=== PATIENT | female | born 1975 | race Caucasian/White ===

== ENCOUNTER 2021-04-08 20:31 | Inpatient (IN) | payer OTHER ==
[~2021-04-08] VITALS: Ht 165.1 cm; Wt 78.9 kg
[~2021-04-08 20:31] MED LIST: NAPROSYN500 MG PO; NORFLEX100 MG PO; TESSALON PERLE100 MG PO
[2021-04-08 20:35] VITALS: BP 112/73
[2021-04-08] MEDS ORDERED: NOHOMEMEDICATIONS (20:40)
[2021-04-08 21:24] LABS: ABSOLUTE NEUTROPHILS 7.4 thou/uL (1.4-8.2); BASOPHILS 0.7 % (0.0-2.0); EOSINOPHILS 1.6 % (0.0-3.0); HEMATOCRIT 38.3 % (37.0-47.0); LYMPHOCYTES 34.3 % (24.0-44.0); MCH 28.6 pg (26.0-34.0); MCHC 33.9 g/dL (28.0-37.0); MCV 84.5 fL (80.0-100.0); MONOCYTES 4.9 % (1.0-8.0); POLYS 58.5 % (36.0-66.0); RBC 4.54 mil/uL (4.20-5.00); RDW 14.7 % (10.5-14.5); WBC 13.4 thou/uL (4.0-11.0)
[2021-04-08 21:31] LABS: ANION GAP 12 mmol/L (7-16); BUN 8 mg/dL (7-18); CALCIUM 8.6 mg/dL (8.5-10.1); CHLORIDE 104 mmol/L (98-107); CO2 22 mmol/L (21-32); CREATININE 0.7 mg/dL (0.6-1.0); GLUCOSE 109 mg/dL (74-106); SODIUM 138 mmol/L (136-145)
[2021-04-08 21:32] LABS: POTASSIUM 4.3 mmol/L (3.5-5.1)
[2021-04-08 21:41] LABS: ALBUMIN 3.2 g/dL (3.4-5.0); LIPASE 75 U/L (73-393); SGOT 17 U/L (15-37); SGPT 15 U/L (30-65); TOTAL BILIRUBIN 0.4 mg/dL (0.2-1.0); TOTAL PROTEIN 6.4 g/dL (6.4-8.2)
[2021-04-08 22:29] LABS: PLATELET COUNT 358 thou/uL (150-400); PLATELET ESTIMATE NORMAL
[2021-04-09] MEDS ORDERED: LIPITOR 20 MG T20 M1 PO (00:30)
[2021-04-09 03:06] LABS: HEMATOCRIT 38.2 % (37.0-47.0); HEMOGLOBIN 12.7 gm/dL (12.0-15.0); MCH 28.5 pg (26.0-34.0); MCHC 33.3 g/dL (28.0-37.0); MCV 85.4 fL (80.0-100.0); RBC 4.48 mil/uL (4.20-5.00); RDW 14.6 % (10.5-14.5); WBC 10.3 thou/uL (4.0-11.0)
[2021-04-09 03:33] LABS: CALCIUM 8.6 mg/dL (8.5-10.1); CREATININE 0.8 mg/dL (0.6-1.0)
[2021-04-09 07:07] VITALS: BP 150/73
[2021-04-09 07:28] VITALS: BP 112/67
--- NOTE | 2021-04-09 07:34 | EKG ---
[address] [place] [address] ELECTROCARDIOGRAM REPORT Name: ANGELA SNYDER Room #: 434-P ADM IN M.R.#: [id number] Admission: 04/08/21 Attend Phys: Satnam Coffman MD Discharge: Date of : 79 Report #: [id number] [facility] ED Test Date: 2021-04-08 Test Time: 20:36:37 Pat Name: ANGELA SNYDER Department: Room: 434 Gender: F [employer]: ISAI : 1975 Requested By: Gareth Horowitz Order Number: [id number] MD: Ben Cooper Measurements Intervals [place] Rate: 84 P: 55 UT: 151 QRS: 53 QRSD: 97 T: 29 QT: 364 QTc: 431 Interpretive Statements Sinus rhythm Probable left atrial enlargement Minimal ST depression, lateral leads No previous ECG available for comparison Electronically Signed On 04-09-2021 7:34:29 CDT by Ben Cooper [email or web address] <ELECTRONICALLY SIGNED> By: Ben Cooper MD, [facility] 04/09/21 0734 35 2036 Ben Cooper MD, FACC /EPI
[2021-04-09 07:50] VITALS: BP 106/68
[2021-04-09 09:39] LABS: CHOLESTEROL 182 mg/dL (<200); HDL CHOLESTEROL 37 mg/dL (>40); LDL CHOLESTEROL 127 mg/dL (<100); TC:HDL 4.9 Ratio (Not establshd); TRIGLYCERIDE 91 mg/dL (<150); VLDL 18 mg/dL (<40)
--- NOTE | 2021-04-09 09:58 | 2DMMODE ---
[facility] [place] [address] 2 D/M-MODE ECHOCARDIOGRAM Name: ANGELA SNYDER Room #: 434-P ADM IN M.R.#: [id number] Admission: 04/08/21 Attend Phys: Goldy Sena MD Discharge: Date of : 79 Report #: [id number] THIS REPORT FOR: cc: GERARD - Lesley family physician/PCP GERARD - No family physician/PCP Ben Cooper MD [facility] ~ APPROVED REPORT Study performed: 04/09/2021 09:15:23 EXAM: Comprehensive 2D, Doppler, and color-flow Echocardiogram Patient Location: Bedside Room #: 434 Status: routine BSA: 1.85 HR: 73 bpm BP: 106/68 mmHg Rhythm: NSR Other Information Study Quality: Adequate Indications Chest Pain 2D Dimensions IVC: 15.00 mm Volumes Left Atrial Volume (Systole) Single Plane 4CH: 33.60 mL Single Plane 2CH: 35.16 mL LA ESV Index: 21.00 mL/m2 Aortic Valve AoV Peak Shan.: 1.59 m/s AO Peak Gr.: 10.07 mmHg LVOT Max P.44 mmHg LVOT Max V: 1.36 m/s Mitral Valve E/A Ratio: 1.1 MV Decel. Time: 235.53 ms MV E Max Shan.: 0.89 m/s MV A Shan.: 0.80 m/s MV PHT: 68.30 ms [facility] [address] [place] [address] 2 D/M-MODE ECHOCARDIOGRAM Name: ANGELA SNYDER CLARK Room #: 434-P ADM IN M.R.#: [id number] Admission: 04/08/21 Attend Phys: Goldy Sena MD Discharge: Date of : 79 Report #: [id number] IVRT: 96.89 ms Pulmonary Valve PV Peak Shan.: 1.07 m/s PV Peak Gr.: 4.57 mmHg Pulmonary Vein P Vein S: 0.48 m/s P Vein A: 0.27 m/s P Vein D: 0.37 m/s P Vein A Dur.: 106.1 msec P Vein S/D Ratio: 1.30 Tricuspid Valve TR Peak Shan.: 2.43 m/s TR Peak Gr.: 23.61 mmHg PA Pressure: 29.00 mmHg Left Ventricle The left ventricle is normal size. There is normal LV segmental wall motion. There is normal left ventricular wall thickness. Left ventricular systolic function is normal. The left ventricular ejection fraction is within the normal range. LVEF is 55-60%. Left ventricular filling pattern is normal for age. Right Ventricle The right ventricle is normal size. The right ventricular systolic function is normal. Atria The left atrium size is normal. The right atrium size is normal. Aortic Valve The aortic valve is normal in structure. No aortic regurgitation is present. There is no aortic valvular stenosis. Mitral Valve The mitral valve is normal in structure. There is no mitral valve regurgitation noted. No evidence of mitral valve stenosis. Tricuspid Valve The tricuspid valve is normal in structure. There is trace tricuspid regurgitation. Estimated PAP 29 mmHg. There is no pulmonary hypertension. Pulmonic Valve The pulmonary valve is normal in structure. There is no pulmonic valvular regurgitation. [facility] [address] [place] [address] 2 D/M-MODE ECHOCARDIOGRAM Name: ANGELA SNYDER CLARK Room #: 434-[facility].#: [id number] Admission: 04/08/21 Attend Phys: Goldy Sena MD Discharge: Date of : 79 Report #: [id number] Great Vessels The aortic root is normal in size. IVC is normal in size and collapses >50% with inspiration. Pericardium There is no pericardial effusion. <Conclusion> Normal left ventricular size/wall thickness Ejection fraction 60% Normal right ventricular size/function Normal atrial size Normal aortic/mitral valve structure and function Trace tricuspid valve insufficiency Pulmonary systolic pressure estimated 29 mmHg Normal aortic root size No pericardial effusion <ELECTRONICALLY SIGNED> By: Ben Cooper MD, [facility] 04/09/21 0957 [id number] Ben Cooper MD, FACC /INF
[2021-04-09] MEDS ORDERED: CEFDINIR300 MG PO (11:27)
[2021-04-09 11:32] VITALS: BP 106/68
--- NOTE | 2021-04-09 11:39 | NUR ---
ADMISSION: PT ARRIVED TO UNIT UPSET AND CRYING. STATES SHE DOES NOT HAVE INSURANCE AND CANNOT AFFORD TO BE IN THE HOSPITAL. PT STATES SHE FEELS SINCE HER HEART IS OK, SHE SHOULD BE ABLE TO GO HOME WITH ORAL ANTIBIOTICS. 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
[2021-04-09 13:27] VITALS: BP 106/68
== END 2021-04-09 13:15 | disposition home or self-care (01) | DRG 195 ==
LOC: ER 20:31 → 4S 22:05 → EROBS 22:05 → 4S 04-09 07:27
PROVIDERS: Emergency Medicine; Nurse Practitioner Family; ADMIT Hospitalist; ATTEND Hospitalist
DX: J18.9 Pneumonia, unspecified organism (principal); R07.89 Other chest pain; E78.5 Hyperlipidemia, unspecified; K21.9 Gastro-esophageal reflux disease without esophagitis; F41.9 Anxiety disorder, unspecified; Z20.822 Contact with and (suspected) exposure to COVID-19; F17.210 Nicotine dependence, cigarettes, uncomplicated

== ENCOUNTER → 2021-08-11 | Outpatient (CLI) | payer OTHER ==
[~2021-08-11] MED LIST changes: +CEFDINIR300 MG PO; +LIPITOR 20 MG T20 M1 PO; +NOHOMEMEDICATIONS
== END ==
LOC: CAT 08:59
PROVIDERS: ATTEND Nurse Practitioner
DX: Z13.6 Encounter for screening for cardiovascular disorders (principal); E78.00 Pure hypercholesterolemia, unspecified; I25.10 Atherosclerotic heart disease of native coronary artery without angina pectoris